=== PATIENT | male | born 1960 | race African-American/Black ===

== ENCOUNTER 2016-08-04 11:42 | Emergency (ER) | payer OTHER ==
[~2016-08-04] VITALS: Ht 172.7 cm; Wt 91.0 kg
[~2016-08-04 11:42] MED LIST: AMIODARONE HCL 50MG/ML 3ML VIAL IV ONE; DOPAMINE 400MG IN DEXT 5% 250ML PREMIX IV ONE; EPINEPHRINE 0.1MG/ML (1:10,000) 10ML SYR ONE; LIDOCAINE 2 GM IV ONE; LIDOCAINE HCL 2% 5ML SYRINGE IV ONE; MAGNESIUM SULFATE 4G IN WATER 100ML PREMIX IV ONE; SODIUM BICARBONATE 7.5% 0.9 MEQ/ML 50ML SYR IV ONE
[2016-08-04] MEDS ORDERED: SODIUM CHLORIDE 0.9% 1,000 ML IV ONE (11:52)
[2016-08-04] MEDS ORDERED: AMIODARONE HCL 900 MG in DEXT 5% WATER 500 ML IV PRN (12:00)
[2016-08-04 12:05] LABS: HEMOGLOBIN. 12.9 g/dL (14.0-18.0); MEAN CORPUSCULAR HEMOGLOBIN 27.7 pg (28.0-32.0); MEAN CORPUSCULAR VOLUME 85.7 fL (80.0-94.0); MEAN PLATELET VOLUME 10.1 fl (7.4-10.4); PLATELET 218 x1000/uL (130-400); RED BLOOD CELL COUNT 4.67 mill/uL (4.7-6.1); RED CELL DISTRIBUTION WIDTH 14.2 % (11.6-14.6)
[2016-08-04] MEDS ORDERED: EPINEPHRINE 0.1MG/ML (1:10,000) 10ML SYR ONE ×2 (12:11→12:24)
[2016-08-04 12:13] LABS: INR 1.2; PROTHROMBIN TIME 12.1 sec
[2016-08-04 12:21] LABS: CARBON DIOXIDE 23 mEq/L (21-32); CHLORIDE 100 mEq/L (98-107); ETHANOL BLOOD < 10 mg/dL
[2016-08-04 12:23] LABS: TROPONIN I 0.36 ng/mL (0.00-0.04)
[2016-08-04 12:30] LABS: PLATELET ESTIMATE NORMAL
[2016-08-04] MEDS ORDERED: AMIODARONE HCL 900 MG in DEXT 5% WATER 482 ML IV ONE (12:35)
[2016-08-04 12:53] LABS: BG BASE EXCESS -15.4 mmol/L (-2.0-2.0); BG CARBOXYHEMOGLOBIN 1.8 % (0.5-1.5); BG DEOXYHEMOGLOBIN 2.7 % (0.0-5.0); BG FRACTION INSPIRED OXYGEN 100; BG HCO3 ACT 13.3 mmol/L (22.0-26.0); BG METHEMOGLOBIN 0.2 % (0.0-1.5); BG OXYGEN SATURATION 97.2 % (92.0-98.5); BG OXYHEMOGLOBIN 95.3 % (94.0-97.0); BG PCO2 41.3 mmHg (35.0-45.0); BG PH 7.125 (7.350-7.450); BG PO2 127.4 mmHg (75.0-100.0); BG SAMPLE SITE LEFT RADIAL; BG TIDAL VOLUME(mL) 500 mL; BG TOTAL HEMOGLOBIN 13.3 g/dL (12.0-18.0); BG VENT MODE VENT - A/C; BG VENT RATE 16 set
[2016-08-04 13:41] VITALS: BP 154/101
== END 2016-08-04 14:27 | disposition short-term general hospital (02) ==
LOC: ER 12:42
DX: I21.3 ST elevation (STEMI) myocardial infarction of unspecified site (principal); I49.01 Ventricular fibrillation; I46.9 Cardiac arrest, cause unspecified; V47.5XXA Car driver injured in collision with fixed or stationary object in traffic accident, initial encounter; Y93.89 Activity, other specified; Y92.410 Unspecified street and highway as the place of occurrence of the external cause; E87.2 Acidosis
CPT/HCPCS: 31500; 36415; 36556; 36600; 71010; 80053; 82375; 82805; 82962; 83690; 83880; 84484; 85025; 85610; 86850; 86900; 86901; 92950; 93005; 94002; 99291; G0482; J0171; J0282; J1265; J2001; J3475; J3490; Z7610; J7030; J7060; A4315